=== PATIENT | female | born 1975 | race Caucasian/White ===

== ENCOUNTER 2022-07-12 08:52 | Day surgery (SDC) | payer BC, SELFPAY ==
[2022-07-12] VITALS (14 sets, daily range): BP systolic 84–100; BP diastolic 49–68; PULSE 70–98; RESP 12–16; TEMP 36.1–37.1; O2SAT 96–100; BMI 22.4
[2022-07-12] MEDS: OXYMETAZOLINE 0.05% NASAL SPRAY 2 SPRAY NOSTRIL-B (09:40)
[2022-07-12] MEDS: SODIUM CHLORIDE 0.9 % (FLUSH) 10 ML SYRINGE IVF (09:40)
[2022-07-12] MEDS: LACTATED RINGERS 1000 ML 1,000 ML 100 ML IV (09:40)
[2022-07-12 09:41] LABS: Ur HCG Qualitative* Negative (Negative)
[2022-07-12] MEDS: BUPIVACAINE 0.5%/EPINEPHRINE 0.9 MG (30.9 ML) INJECTION (10:50)
--- NOTE | 2022-07-12 11:12 | W.ANESCHARGE ---
Anesthesia Charges Start Date/Time Anesthesia Start Date: 07/12/22 Anesthesia Start Time: 10:30 Stop Date/Time Anesthesia Stop Date: 07/12/22 Anesthesia Stop Time: 11:09 Summary Emergency: No
--- NOTE | 2022-07-12 11:15 | W.ANESCHARGE ---
Anesthesia Charges Start Date/Time Anesthesia Start Date: 07/12/22 Anesthesia Start Time: 10:30 Stop Date/Time Anesthesia Stop Date: 07/12/22 Anesthesia Stop Time: 11:09 Summary Emergency: No
--- NOTE | 2022-07-12 11:33 | SUR.PHASEI ---
PT.VSS, TRANSFER PT. TO SDS VIA CART.
--- NOTE | 2022-07-12 11:37 | W.PM.ENTPROC ---
Procedure Note Date of procedure: 07/12/22 Procedure: Preoperative diagnosis nasal headache left greater than right, nasal obstruction, inferior turbinate hypertrophy. Postoperative diagnosis same Procedure is submucous partial resection inferior turbinates and left middle turbinate. Under general endotracheal anesthesia patient was prepped and draped in usual fashion and the nose injected and decongested. A stab incision was made in the anterior left inferior turbinate a tunnel created with a Rohit dissector. The sourav bone was outfractured and a conservative anterior submucous resection performed. The Coblation Wand was used to cauterize intramurally and for hemostasis. This cautery was performed intramurally along the inferior 10% and a very conservative fashion. This was repeated on the right side in identical fashion The left middle turbinate was incised along its lateral aspect in the Consul bone infractured and then crushed with the Morgan forceps. I just simply crushed the right middle turbinate. I did Merocel pack coated in Bactroban was placed beneath the middle turbinate on each side. The patient opted well was taken recovery in satisfactory condition. There were no complications. Blood loss less than 5 mL Surgeon: Jonnathan Seo MD
[2022-07-12] MEDS: HYDROmorphone 0.5 mg/0.5 ml inj IVP (12:30)
--- NOTE | 2022-07-12 13:12 | SUR.PHASEII ---
PATIENT HAD STINGING FEELING IN IV AFTER DILAUDID GIVEN. ANESTHESIA NOTIFIED. NO OTHER SYMPTOMS NOTED AFTER. REDNESS OF VEINS DISAPPEARED BY 20 MINUTES.
== END 2022-07-12 13:10 | disposition home or self-care (01) ==
PROVIDERS: PCP Family Medicine; Visit Provider Otolaryngology
PROC: (CPT 30520; principal; 2022-07-12 10:15)
DX: J34.3 Hypertrophy of nasal turbinates (principal); R51.9 Headache, unspecified; J34.89 Other specified disorders of nose and nasal sinuses
CPT/HCPCS: 30140; 30999; 00160; 81025; J0330; J1100; J1170; J2250; J2405; J2704; J7120

== ENCOUNTER 2022-11-11 13:39 | Outpatient (CLI) | payer BC, SELFPAY | END 2022-11-11 13:40 | disposition home or self-care (01) | LOC: NFLDUCREF 11-13 11:23 | PROVIDERS: PCP Family Medicine; Visit Provider Nurse Practitioner Family | DX: R35.89 Other polyuria (principal); N39.0 Urinary tract infection, site not specified | CPT/HCPCS: 87086 ==

== ENCOUNTER 2023-02-14 08:33 | Outpatient (CLI) | payer BC, SELFPAY | END 2023-02-14 08:34 | disposition home or self-care (01) | PROVIDERS: PCP Family Medicine; Visit Provider Family Medicine | DX: Z00.00 Encounter for general adult medical examination without abnormal findings (principal); E55.9 Vitamin D deficiency, unspecified; N92.0 Excessive and frequent menstruation with regular cycle; E07.9 Disorder of thyroid, unspecified; Z13.6 Encounter for screening for cardiovascular disorders | CPT/HCPCS: 80048; 80061; 82306; 82728; 83001; 83002; 84443 ==

== ENCOUNTER 2023-02-21 15:04 | Outpatient (CLI) | payer BC, SELFPAY ==
--- NOTE | 2023-02-21 15:20 | CRLHL7_ITS ---
For Patients: As a result of the Century Cures Act, medical imaging exams and procedure reports are released immediately into your electronic medical record. You may view this report before your referring provider. If you have questions, please contact your health care provider. BILATERAL SCREENING MAMMOGRAM WITH COMPUTER-AIDED DETECTION AND TOMOSYNTHESIS TECHNIQUE: CC and MLO views were obtained. These mammographic images have been obtained using full-field digital technique. These mammographic images were interpreted with the benefit of computer-aided detection. Breast Tomosynthesis was used in this interpretation. COMPARISON FILM: 02/06/22, 01/15/21, 01/13/20. FINDINGS: The breasts are heterogeneously dense, which may obscure small masses IMPRESSION: There is no radiographic evidence for malignancy. ASSESSMENT: BI-RADS Category 2: Benign RECOMMENDATION: Routine screening mammogram in 1 year. A lay language report of this examination will be provided to the patient. Ted Manriquez M.D. Diagnostic Radiologist [email or web address] JOSE LUIS/Dictated by: Ted Manriquez MD @ 02/28/2023 8:14:00 AM (Electronically Signed)
== END 2023-02-21 15:05 | disposition home or self-care (01) ==
LOC: MAMMO 15:05
PROVIDERS: PCP Family Medicine; Visit Provider Family Medicine
DX: Z12.31 Encounter for screening mammogram for malignant neoplasm of breast (principal); R92.2 Inconclusive mammogram
CPT/HCPCS: 77063; 77067

== ENCOUNTER 2023-07-31 08:48 | Outpatient (CLI) | payer BC, SELFPAY ==
--- NOTE | 2023-07-31 | CRLHL7_ITS ---
For Patients: As a result of the Century Cures Act, medical imaging exams and procedure reports are released immediately into your electronic medical record. You may view this report before your referring provider. If you have questions, please contact your health care provider. DIAGNOSTIC LEFT BREAST MAMMOGRAM WITH COMPUTER-AIDED DETECTION AND TOMOSYNTHESIS LEFT BREAST ULTRASOUND CLINICAL HISTORY: LEFT breast lump. COMPARISON: 02/21/2023. TECHNIQUE: Digital LEFT mammogram in 2 projections. Computer-aided detection and tomosynthesis were used. Real-time ultrasound imaging of LEFT breast with imaging documentation. BREAST COMPOSITION: The breasts are heterogeneously dense, which may obscure small masses FINDINGS: 3D CC/MLO LEFT breast mammogram images submitted. Lobular densities within the upper-outer quadrant of the LEFT breast again noted. No architectural distortion, adenopathy or suspicious calcifications. Targeted LEFT breast ultrasound performed. At 3 o`clock 8 cm from the nipple there is a simple anechoic cyst measuring 3.2 x 2.9 x 3.0 cm. Other smaller adjacent cysts are present. No solid masses. IMPRESSION: Benign fibrocystic changes in the upper outer quadrant LEFT breast measuring up to 3.2 cm. No evidence of malignancy. RECOMMENDATIONS: Clinical follow-up. Routine screening mammography. BI-RADS Category 2: Benign Results and recommendations discussed with the patient. A lay language report of this examination will be provided to the patient. Dictated by Ted Manriquez MD @ 07/31/2023 11:02:10 AM/rey JOSE LUIS/Dictated by: Ted Manriquez MD @ 07/31/2023 11:02:00 AM (Electronically Signed)
--- NOTE | 2023-07-31 09:15 | CRLHL7_ITS ---
For Patients: As a result of the Century Cures Act, medical imaging exams and procedure reports are released immediately into your electronic medical record. You may view this report before your referring provider. If you have questions, please contact your health care provider. PLEASE SEE LEFT DIAGNOSTIC MAMMOGRAM OF SAME DAY. CRL:rey JOSE LUIS/Dictated by: Ted Manriquez MD @ 07/31/2023 11:38:00 AM (Electronically Signed)
--- NOTE | 2023-07-31 10:30 | CRLHL7_ITS ---
For Patients: As a result of the Century Cures Act, medical imaging exams and procedure reports are released immediately into your electronic medical record. You may view this report before your referring provider. If you have questions, please contact your health care provider. CLINICAL HISTORY: menometrorrhagia, pelvic pain TECHNIQUE: 2D paredes scale ultrasound. In addition color Doppler and spectral Doppler analysis was performed of the pelvis using a transabdominal and approach. FINDINGS: The myometrium has a heterogeneous echotexture. The uterus measures 8.3 x 4.4 x 5.2 cm. The endometrial lining measures 11 mm in thickness. The right ovary is absent and the left ovary measures 4.2 x 2.4 x 3.0 cm. The left ovary demonstrates normal arterial and venous blood flow on color Doppler and spectral Doppler analysis. Complex hypoechoic left ovarian cyst is noted measuring 2.5 x 2.2 x 2.4 cm. There are no suspicious fluid collections within the cul-de-sac. IMPRESSION: Collapsing hemorrhagic left ovarian cyst measuring 2.5 cm. No excess pelvic free fluid. No torsion. Status post right oophorectomy. Heterogeneous myometrium without leiomyoma. Endometrial thickness 11 millimeters. Dictated by Ted Manriquez MD @ 07/31/2023 10:44:28 AM (Electronically Signed)
== END 2023-07-31 08:49 | disposition home or self-care (01) ==
LOC: US 08:49
PROVIDERS: PCP Family Medicine; Visit Provider Family Medicine
DX: N63.20 Unspecified lump in the left breast, unspecified quadrant (principal); N92.0 Excessive and frequent menstruation with regular cycle; N83.202 Unspecified ovarian cyst, left side; D25.9 Leiomyoma of uterus, unspecified; R93.89 Abnormal findings on diagnostic imaging of other specified body structures; R10.2 Pelvic and perineal pain
CPT/HCPCS: 76642; 76830; 77065; 93976; G0279

== ENCOUNTER 2023-08-04 10:47 | Outpatient (CLI) | payer BC, SELFPAY ==
--- NOTE | 2023-08-04 11:15 | CRLHL7_ITS ---
For Patients: As a result of the Century Cures Act, medical imaging exams and procedure reports are released immediately into your electronic medical record. You may view this report before your referring provider. If you have questions, please contact your health care provider. ULTRASOUND-GUIDED CYST ASPIRATION CLINICAL HISTORY: Painful cysts COMPARISON STUDIES: 07/31/2023 TECHNIQUE: Real-time ultrasound with image documentation was used for targeting the breast lesion. Cyst aspiration performed with 18 gauge needle. CONSENT and TIME OUT: The procedure, risks, and alternatives were explained to the patient and a consent was signed. [place] Protocol was followed including pre-procedure verification that relevant information/documentation was available, reviewed and properly matched to the patient; consent accurate and complete; and equipment and supplies available. Time Out was conducted just prior to starting procedure to verify the four required elements: patient identity, correct side/site marked (if applicable), procedure, relevant images/results properly labeled and displayed (if applicable). PROCEDURE: The patient was positioned supine on the ultrasound table. The breast was prepped with ChloraPrep. 8 cc of 1 percent lidocaine used for local anesthesia. Multiple cysts were aspirated within the upper outer quadrant left breast 8 cm from the nipple. 30 cc of cystic fluid obtained and discarded. IMPRESSION: Ultrasound-guided cyst aspirations. ACR not applicable Dictated by Ted Manriquez MD @ 08/04/2023 12:38:27 PM (Electronically Signed)
== END 2023-08-04 10:48 | disposition home or self-care (01) ==
LOC: US 10:48
PROVIDERS: PCP Family Medicine; Visit Provider Family Medicine
DX: N60.02 Solitary cyst of left breast (principal)
CPT/HCPCS: 19000; 76942

== ENCOUNTER 2023-08-15 12:11 | Outpatient (CLI) | payer BC, SELFPAY | END 2023-08-15 12:12 | disposition home or self-care (01) | LOC: NFLDREF 12:13 | PROVIDERS: PCP Family Medicine; Visit Provider Obstetrics & Gynecology | DX: N92.0 Excessive and frequent menstruation with regular cycle (principal) | CPT/HCPCS: 84443 ==

== ENCOUNTER 2023-08-26 12:20 | Outpatient (CLI) | payer BC, SELFPAY | END 2023-08-26 12:21 | disposition home or self-care (01) | LOC: FBOREF 12:21 | PROVIDERS: PCP Family Medicine; Visit Provider Family Medicine | DX: Z01.818 Encounter for other preprocedural examination (principal) | CPT/HCPCS: 80048 ==

== ENCOUNTER 2023-09-04 15:00 | Inpatient (IN) | payer BC, SELFPAY ==
[2023-09-03] VITALS (39 sets, daily range): BP systolic 79–107; BP diastolic 45–87; PULSE 58–807; RESP 14–18; TEMP 36.4–37.9; O2SAT 92–100; BMI 23.9
[2023-09-03] MEDS: LACTATED RINGERS 1000 ML 1,000 ML 100 ML IV ×3 (08:25→13:34)
--- NOTE | 2023-09-03 08:58 | W.PM.H&PU ---
History & Physical Update History & Physical Update H&P Reviewed and patient assessed: No changes noted H&P Updates: Preoperative diagnosis: Menorrhagia and dysmenorrhea Pertinent medical history: History bilateral salpingectomy and right oophorectomy History of diverticulosis Numerous allergies Planned procedures: Total vaginal hysterectomy, cystoscopy Physical exam: General: No acute distress Psych: Alert and oriented x3, full affect HEENT: Normocephalic, atraumatic Heart: Regular rate and rhythm, no murmur rub or gallop Lungs: Clear to auscultation bilaterally Labs: pending at this time Gentamicin and metronidazole for preoperative prophylaxis Dilaudid for postoperative pain
[2023-09-03 09:09] LABS: Ur HCG Qualitative* Negative (Negative)
[2023-09-03 09:15] LABS: Hemoglobin* 13.7 gm/dL (12.0-16.0)
[2023-09-03] MEDS: MIDAZOLAM HCL 1 MG/ML inj 2 MG IVP (09:27)
[2023-09-03] MEDS: ACETAMINOPHEN 500 MG TABLET 1000 MG PO (09:30)
[2023-09-03 09:43] LABS: Creatinine* 0.8 mg/dL (0.5-1.5); Est. Creatinine Clearance* 83.63; Estimated Glomerular Filt Rate 91 ml/min
[2023-09-03] MEDS: metroNIDAZOLE 500 MG/100 ML PIGGYBACK IVPB (11:03)
[2023-09-03] MEDS: GENTAMICIN 330 MG in 0.9 % SODIUM CHLORIDE 100 ml 100 ML 108.25 MG IVPB (11:20)
[2023-09-03] MEDS: 0.9 % SODIUM CHLORIDE 50 ml INJECTION (11:32)
[2023-09-03] MEDS: VASOPRESSIN 20 UNIT/ML INJ INJECTION (11:34)
--- NOTE | 2023-09-03 12:23 | W.ANESCHARGE ---
Anesthesia Charges Start Date/Time Anesthesia Start Date: 09/03/23 Anesthesia Start Time: 10:46 Stop Date/Time Anesthesia Stop Date: 09/03/23 Anesthesia Stop Time: 12:18
--- NOTE | 2023-09-03 12:28 | W.PM.GYNPROC ---
Procedure Note Pre-op diagnosis: Menorrhagia Post-op diagnosis: same Procedure: Total vaginal hysterectomy, cystoscopy Anesthesia: MAC and spinal Complications: None Surgeon: Lilian Denise MD Apparel Sales Associate: Annette Schneider Estimated blood loss (mL): 25 IV fluids (mL): 1,300 Pathology: specimen obtained, sent to pathology (Uterus and cervix) Condition: stable Disposition: floor Findings: 1. Upon pelvic exam under anesthesia, the cervix and vagina were normal in appearance. Uterus was mobile and anteverted, of normal size and texture. There were no palpable adnexal masses. 2. Uterus was normal in appearance, with weight 89 g. Visualized portions of the left ovary were normal in appearance. Bilateral tubes and right ovary were surgically absent. 3. Upon cystoscopy, performed after completion of hysterectomy, the bladder mucosa was normal in appearance without any visualized injury. There were bilateral ureteral jets noted. Procedure Description: Procedure in detail: Patient was taken to the operating room with IV running. Spinal anesthesia was administered. She received gentamicin and metronidazole in preoperative prophylaxis. She was positioned in dorsal lithotomy position with her legs in candy-cane stirrups. Exam under anesthesia was performed for the above noted findings. Rand catheter was inserted. Weighted speculum was inserted. Cervix was grasped along its anterior and posterior lips with thyroid double toothed tenacula. The cervical vaginal junction was circumferentially infiltrated with dilute vasopressin. The cervical vaginal junction was then incised circumferentially with scalpel. The vaginal epithelium was dissected bluntly off bilateral uterosacral ligaments. Anterior colpotomy was performed sharply, and a [place] retractor was placed between the bladder and the uterus. The posterior colpotomy was performed sharply, and a long weighted speculum was placed in the cul-de-sac. Bilateral uterosacral ligaments were clamped, cut, suture ligated with 0 Vicryl, and tagged for later identification. The cardinal ligaments were serially clamped, cut, and suture ligated bilaterally with 0 Vicryl. Finally, the remnants of the broad ligament were cauterized and transected LigaSure exact device, ultimately freeing the uterus from its attachments to the pelvis. The uterus was delivered through the vagina. The visualized portions of the left ovary were normal in appearance. The angles of the vaginal cuff were closed with a stitch of 0 Vicryl, incorporating the distal most aspect of the uterosacral pedicle into the closure. The intervening vaginal cuff was closed with a series of [id number] sutures of 0 Vicryl. Electrocautery was used at 1 site along the vaginal cuff. Hemostasis was noted. All instruments were removed from the vagina. Rand catheter was removed from the patient's bladder. Patient was administered IV methylene blue to aid in visualization of ureteral jets. Cystoscopy was performed, revealing bilateral ureteral jets and no injury to the bladder. The cystoscope was removed and the Rand catheter replaced. Postoperative debrief was verbalized with OR staff, including a verification of pathology specimens to be sent as described above. Patient tolerated procedure well and was taken to recovery area in stable condition.
[2023-09-03] MEDS: METOCLOPRAMIDE HCL 5 MG/ML INJ 10 MG IVP (12:38)
[2023-09-03] MEDS: HYDROmorphone 0.5 mg/0.5 ml inj IVP (12:39)
[2023-09-03] MEDS: HYDROmorphone 2 MG TABLET PO ×3 (15:20→22:59)
[2023-09-03] MEDS: ONDANSETRON ODT 4 MG TAB PO ×2 (15:24→23:11)
[2023-09-03] MEDS: METOCLOPRAMIDE 10 MG TABLET PO (17:10)
[2023-09-03] MEDS: ACETAMINOPHEN 325 MG TABLET 650 MG PO (18:50)
[2023-09-04] VITALS (20 sets, daily range): BP systolic 85–99; BP diastolic 51–65; PULSE 68–80; RESP 14–16; TEMP 36.4–36.9; O2SAT 98–100
[2023-09-04] MEDS: MELATONIN 3 MG TABLET PO (00:25)
[2023-09-04] MEDS: ACETAMINOPHEN 325 MG TABLET 650 MG PO ×5 (00:44→22:34)
[2023-09-04] MEDS: HYDROmorphone 2 MG TABLET PO ×4 (04:57→19:33)
[2023-09-04 05:29] LABS: Hemoglobin* 11.7 gm/dL (12.0-16.0)
[2023-09-04 05:49] LABS: Creatinine* 0.7 mg/dL (0.5-1.5); Est. Creatinine Clearance* 95.58; Estimated Glomerular Filt Rate 107 ml/min
[2023-09-04] MEDS: SIMETHICONE 80 MG TAB.CHEW 160 MG PO (06:30)
[2023-09-04] MEDS: diphenhydrAMINE 25 MG CAPSULE PO ×2 (11:37→20:41)
--- NOTE | 2023-09-04 13:11 | NUTR.NU ---
RDN with MD consult for diet. RDN visited with patient and whom is concerned regarding gluten-free diet and cross contamination in kitchen. Patient reported she had chicken breast yesterday and she did not feel good after eating it. She is hesitant to order more food during admit due to not wanting to eat food that is contamined. RDN spoke to Culinary Services staff and director whom reported keeping in stock gluten-free meals that are pre-made at a gluten-free facility. They also offer gluten free soups, bread (separate toaster for gluten-free food), and desserts, etc. RDN relayed this information to patient. Patient was grateful in information regarding food options. Patient and had no further questions. RDN to follow up as needed.
--- NOTE | 2023-09-04 15:50 | P.GYNPN_ITS ---
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 This is complicated by her multiple allergies. I consulted nutrition to visit her regarding her concerns over gluten cross contamination in the kitchen. She had a for full visit with the staff and now feels comfortable to eat food here. I think this will help when taking oral narcotics. However, she still reports suboptimal pain control, and does not feel capable of getting out of bed on her own at home. Thus, I will change her status to inpatient for indication of inadequate pain control. I am hopeful that she will be ready for discharge in the morning. Per her request, we will begin Colace for management of constipation. She may take 2-4 mg of Dilaudid every 6 hours. I increased her dose from 2-4 this morning. I would like her to continue taking Tylenol. Postoperative Procedures: Procedures Operation Date: 09/03/23 10:10 Actual Procedure Side Surgeon p Total Vaginal Hysterectomy, Cystoscopy Not Applicable Lilian Denise MD Postoperative day: 1 Time Spent With Patient Time: Total time spent is greater than 50% in coordination of care (as documented) at patient's floor/unit and/or counseling patient: Time with patient: 25 - 35 minutes CLOTHING PATTERN PREPARER- PN:Subj Post-Op Subjective Date Seen: 09/04/23 Post Operative Details: Post-operative day number 1: status post total vaginal hysterectomy and cystoscopy Tessa has struggled with pain control overnight. Due to her allergies, she cannot use NSAIDs. She is using Tylenol and p.o. Dilaudid pain. She has felt the pain was too severe to allow her to easily get out of bed. She is able to walk. She passed her voiding trial this morning. Initially, when I visit her this morning, she had eaten only crackers due in large part to concerns over cross contamination with gluten in the hospital kitchen. She is feeling nauseated. She denies any heavy bleeding. CLOTHING PATTERN PREPARER-PN: Obj Exam Physical Exam: Vital signs: Temp Pulse Resp BP Pulse Ox O2 Del Method 98.3 F 77 16 99/65 100 Room Air 09/04/23 15:37 09/04/23 15:37 09/04/23 15:37 09/04/23 15:37 09/04/23 15:37 09/04/23 15:37 Narrative: General: Pleasant, no acute distress Heart: Regular rate and rhythm, no murmur or gallop Lungs: Clear to auscultation bilaterally Abdomen: Soft, normoactive bowel sounds in all 4 quadrants, no tenderness, rebound, or guarding Urinary Catheter Management: Urethral: Cath placed during this visit: yes, but has since been removed by the nurse Reason for continuing: surgical procedure Removal date: 09/04/23 Removal time: 06:20 CLOTHING PATTERN PREPARER - PN: Obj Data Labs Labs: Laboratory Results - last 24 hr 09/04/23 05:15 Hgb 11.7 L Creatinine 0.7 Estimated Creat Clear 95.58 Estimated GFR 107
[2023-09-05] MEDS: ACETAMINOPHEN 325 MG TABLET 650 MG PO ×2 (02:32→06:27)
--- NOTE | 2023-09-05 02:42 | PC.NURSE ---
Melatonin was offered to pt at 2100. pt declined medication and RN encouraged pt to call out if she wanted medication. Pt has been able to rest over night and is feeling much better.
[2023-09-05 06:19] VITALS: PULSE 78; RESP 16
[2023-09-05 06:24] VITALS: BP 97/55; PULSE 78; RESP 16; TEMP 36.6; O2SAT 95
[2023-09-05 06:47] LABS: Basophils Absolute Auto 0.03 K/uL (0.00-0.30); Basophils Percent Auto 0.4 % (0.0-3.0); Eosinophils Absolute Auto 0.11 K/uL (0.00-0.50); Eosinophils Percent Auto 1.6 % (0.0-7.0); Hematocrit 36.9 % (33.0-51.0); Hemoglobin* 12.1 gm/dL (12.0-16.0); Immature Granulocytes Abs Auto 0.01 K/uL (0.00-0.30); Immature Granulocytes Pct Auto 0.1 %; Lymphocytes Absolute Auto 1.79 K/uL (0.90-2.90); Lymphocytes Percent Auto 25.5 % (20-44); Mean Corpuscular HGB Conc 33 gm/dL (32-36); Mean Corpuscular Hemoglobin 32 pg (26-34); Mean Corpuscular Volume 96 fL (80-100); Monocytes Percent Auto 8.5 % (0.0-11.0); Neutrophils Absolute Auto 4.48 K/uL (1.7-7.0); Neutrophils Percent Auto 63.9 % (42.0-72.0); Platelet Count* 177 K/uL (140-440); RDW Coefficient of Variation % 13.1 % (11.5-15.5); Red Blood Count 3.83 m/uL (4.00-5.20); White Blood Count* 7.02 K/uL (4.50-11.00)
[2023-09-05 06:51] LABS: Slide Review Reflex No
[2023-09-05] MEDS: DOCUSATE SODIUM 100 MG CAPSULE PO (08:41)
[2023-09-05] MEDS: ONDANSETRON ODT 4 MG TAB PO (08:41)
[2023-09-05] MEDS: diphenhydrAMINE 25 MG CAPSULE PO (09:10)
[2023-09-05] MEDS: HYDROmorphone 2 MG TABLET PO (11:27)
--- NOTE | 2023-09-05 12:28 | PM.GYNDS1 ---
DS: Providers Provider Time Seen by Provider: 12:29 Date Seen: 09/05/23 Date of admission: 09/04/23 15:00 Primary care physician: Ted Doe MD Admitting Clinician: Lilian Denise MD Consults: 09/04/23 10:29 Consult to Nutrition [CONS] Routine Comment: Reason for consult:: Miscellaneous Comment: Gluten Attending Physician on discharge: Lilian Denise MD DS: Diagnosis Discharge Diagnosis (1) S/P vaginal hysterectomy: Status: Acute (2) Allergic rhinitis: Status: Acute (3) Vitamin D deficiency, unspecified: Status: Acute (4) Dyshidrotic eczema: Status: Acute (5) Ocular rosacea: Status: Acute (6) Irritable bowel syndrome: Status: Acute (7) Fibromyalgia: Status: Acute (8) Diverticular disease: Status: Acute (9) Gluten intolerance: Status: Acute (10) Lactose intolerance: Status: Acute (11) Moderate persistent asthma, uncomplicated: Status: Acute (12) Chronic constipation: Status: Acute 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 Total vaginal hysterectomy, cystoscopy Indication for surgery: Menorrhagia. Intraoperative findings: 1. Upon pelvic exam under anesthesia, the cervix and vagina were normal in appearance. Uterus was mobile and anteverted, of normal size and texture. There were no palpable adnexal masses. 2. Uterus was normal in appearance, with weight 89 g. Visualized portions of the left ovary were normal in appearance. Bilateral tubes and right ovary were surgically absent. 3. Upon cystoscopy, performed after completion of hysterectomy, the bladder mucosa was normal in appearance without any visualized injury. There were bilateral ureteral jets noted. She had an uncomplicated surgery. Postoperative course has been overall uneventful. Patient stated an extra day for pain control. Vitals have been stable. She has remained afebrile. Today, on postoperative day 2, she reports the pain is well controlled. She has been able to ambulate Without difficulty. She is tolerating regular diet. She is passing flatus. Rand catheter has been removed, and she is voiding without difficulty. Time Spent with Patient Time attestation: Total time spent providing and/or coordinating discharge services: Time spent: Less than 30 minutes LOAN PROCESSING SUPERVISOR - Exam Physical Exam: Vital signs: Temp Pulse Resp BP Pulse Ox O2 Del Method 98 F 78 16 97/55 L 95 Room Air 09/05/23 06:24 09/05/23 06:24 09/05/23 06:24 09/05/23 06:24 09/05/23 06:24 09/05/23 06:24 Narrative: Physical exam: General: No acute distress Psych: Alert and oriented x3, full affect HEENT: Normocephalic, atraumatic Neck: No cervical adenopathy, no thyromegaly Heart: Regular rate and rhythm, no murmur rub or gallop Lungs: Clear to auscultation bilaterally Abdomen: Normoactive bowel sounds, soft, no tenderness, rebound, or guarding, no masses, no hepatosplenomegaly, no hernias Skin: No lesions or rashes Lower extremities: No edema or erythema Pelvic exam: Very scant bleeding on pad LOAN PROCESSING SUPERVISOR - DS: Data Data Completed and Pending Labs on day of discharge: Labs from last 24 hours 09/05/23 06:31 WBC 7.02 RBC 3.83 L Hgb 12.1 Hct 36.9 MCV 96 MCH 32 MCHC 33 RDW Coeff of Silvio 13.1 Plt Count 177 Neut % (Auto) 63.9 Lymph % (Auto) 25.5 [place] % (Auto) 8.5 Eos % (Auto) 1.6 Baso % (Auto) 0.4 Neut # (Auto) 4.48 Lymph # (Auto) 1.79 [place] # (Auto) 0.60 Eos # (Auto) 0.11 Baso # (Auto) 0.03 Abs Immat Gran (auto) 0.01 Imm/Tot Granulo (auto) 0.1 Procedures Procedures: Procedures Operation Date: 09/03/23 10:10 Actual Procedure Side Surgeon p Total Vaginal Hysterectomy, Cystoscopy Not Applicable Lilian Denise MD Discharge Plan Discharge Disposition: Home, Self-Care Date of Admission: 09/04/23 15:00 Primary Care Provider: Ted Doe Condition: Stable Anticipated Discharge Date/Time: 09/05/23 12:00 Discharge Medications: New acetaminophen 325 mg Tablet 650 mg PO Q4H PRN (Reason: minor pain) Qty: 60 0RF docusate sodium 100 mg Capsule 100 mg PO BID PRN (Reason: Constipation) Qty: 30 0RF melatonin 3 mg Tablet 3 mg PO HS Qty: 30 0RF hydromorphone 2 mg Tablet 2 mg PO Q6H PRN14 Days Qty: 20 0RF simethicone 80 mg Tablet,Chewable 160 mg PO Q4H PRN (Reason: gas) 14 Days Qty: 30 0RF Continued triamcinolone acetonide 55 mcg aerosol,spray 2 spray intranasal QDAY Qty: 16.9 5RF Rx Instructions: administer into each nostril, nosebleeds from Flonase albuterol sulfate 90 mcg/actuation HFA aerosol inhaler 2 puff inhalation Q4H PRN (Reason: wheezing) Qty: 8.5 1RF ondansetron 4 mg tablet,disintegrating 4 mg PO Q8H PRN diphenhydramine HCl [Allergy Medication] 25 mg capsule 25 mg PO DAILY Discharge Orders: Discharge Order (Routine); Ordered 09/05/23 Ordered By: Olga Quinteros Patient Education: Simethicone (By mouth), Hydromorphone (By mouth), Melatonin (By mouth), Vaginal Hysterectomy (DC) Additional Instructions: [facility] at 10:15am Follow Up Appointments: Ted Doe MD [Primary Care Provider] - [facility]
== END 2023-09-05 11:40 | disposition home or self-care (01) | DRG 850 ==
LOC: OR 09-05 02:33 → OB 09-05 02:33
PROVIDERS: Admitting Provider Obstetrics & Gynecology; PCP Family Medicine; Visit Provider Obstetrics & Gynecology
PROC: 0UT97ZZ Resection of Uterus, Via Natural or Artificial Opening (ICD-10-PCS; principal; 2023-09-03 10:00)
DX: G89.18 Other acute postprocedural pain (principal); N92.0 Excessive and frequent menstruation with regular cycle; N94.6 Dysmenorrhea, unspecified; Z90.79 Acquired absence of other genital organ(s); Z90.721 Acquired absence of ovaries, unilateral; J45.40 Moderate persistent asthma, uncomplicated; L30.1 Dyshidrosis [pompholyx]; M79.7 Fibromyalgia; K57.90 Diverticulosis of intestine, part unspecified, without perforation or abscess without bleeding; J30.9 Allergic rhinitis, unspecified; L71.8 Other rosacea; E55.9 Vitamin D deficiency, unspecified; K58.1 Irritable bowel syndrome with constipation; K90.41 Non-celiac gluten sensitivity; E73.9 Lactose intolerance, unspecified
CPT/HCPCS: 36415; 81025; 82565; 85018; 85025; 86850; 86900; 86901; 88307; 944; A9270; J1100; J1170; J1580; J2250; J2274; J2371; J2405; J2704; J2765; J3475; J3490; J7120; S0030

== ENCOUNTER 2023-09-08 07:57 | Outpatient (CLI) | payer BC, SELFPAY ==
--- NOTE | 2023-09-08 08:15 | CRLHL7_ITS ---
For Patients: As a result of the Cures Act, medical imaging exams and procedure reports are released immediately into your electronic medical record. You may view this report before your referring provider. If you have questions, please contact your health care provider. LEFT BREAST ULTRASOUND CLINICAL HISTORY: Previous LEFT breast cyst aspiration 08/04/23, 3 o`clock 8 cm from the nipple. Possible recurrence. COMPARISON: 08/04/2023. TECHNIQUE: Real-time ultrasound imaging of LEFET breast with imaging documentation. FINDINGS: Targeted sonogram LEFT breast 3 o`clock 8 cm from the nipple performed. A tiny residual cyst is present corresponding to the area previously aspirated. This measures 6 millimeters in size. Smaller adjacent cysts are present closer to the nipple. IMPRESSION: Tiny residual amount of fluid within the LEFT breast 3 o`clock 8 cm from the nipple representing a small amount of residual cystic change. No suspicious findings. RECOMMENDATIONS: Routine annual BILATERAL screening mammography. Results and recommendations were discussed with the patient at the time of the exam. BI-RADS Category 2: Benign A lay language report of this examination will be provided to the patient. Dictated by eTd Manriquez MD @ 09/08/2023 9:57:44 AM jj/Dictated by: Ted Manriquez MD @ 09/08/2023 9:57:00 AM (Electronically Signed)
== END 2023-09-08 07:58 | disposition home or self-care (01) ==
LOC: US 07:58
PROVIDERS: PCP Family Medicine; Visit Provider Surgery
DX: N60.02 Solitary cyst of left breast (principal)
CPT/HCPCS: 76642

== ENCOUNTER 2023-09-17 10:48 | Outpatient (CLI) | payer BC, SELFPAY ==
--- NOTE | 2023-09-17 10:45 | CRLHL7_ITS ---
For Patients: As a result of the Century Cures Act, medical imaging exams and procedure reports are released immediately into your electronic medical record. You may view this report before your referring provider. If you have questions, please contact your health care provider. INDICATION: Leg pain and swelling. TECHNIQUE: Ultrasound venous duplex lower left extremity. Compression venous exam was performed using paredes-scale, color Doppler, and spectral Doppler analysis. COMPARISON: None. FINDINGS: Deep veins: Sonographic imaging demonstrates the left common femoral, deep femoral, superficial femoral, popliteal, posterior tibial and the contralateral right common femoral veins to be fully compressible with normal color Doppler blood flow. Superficial veins: Greater saphenous vein is fully compressible. No popliteal cyst. IMPRESSION: Normal left lower extremity venous ultrasound, no sign of deep venous thrombosis. Dictated by Cristhian Gutierrez MD @ 09/17/2023 11:28:11 AM (Electronically Signed)
== END 2023-09-17 10:49 | disposition home or self-care (01) ==
LOC: US 10:49
PROVIDERS: PCP Family Medicine; Visit Provider Obstetrics & Gynecology
DX: M79.606 Pain in leg, unspecified (principal); R22.42 Localized swelling, mass and lump, left lower limb
CPT/HCPCS: 93971

== ENCOUNTER 2024-02-27 08:05 | Outpatient (CLI) | payer BC, SELFPAY | END 2024-02-27 08:06 | disposition home or self-care (01) | LOC: NFLDREF 03-05 07:46 | PROVIDERS: PCP Family Medicine; Referring Provider Family Medicine; Visit Provider Obstetrics & Gynecology | DX: R63.5 Abnormal weight gain (principal); Z13.220 Encounter for screening for lipoid disorders; Z13.29 Encounter for screening for other suspected endocrine disorder; Z13.21 Encounter for screening for nutritional disorder | CPT/HCPCS: 80061; 82306; 84443 ==

== ENCOUNTER 2024-03-23 18:05 | Outpatient (CLI) | payer BC, SELFPAY ==
--- NOTE | 2024-03-23 18:20 | MM_ITS ---
Patient: MELODIE GREENFIELD Facility:?[facility] Patient ID:?[id number] Site Patient ID:?[id number]. Site :?[id number] Study:?XRay-Breast Bilateral XRay Breast Bilateral 3D screeni-03/23/2024 7:50:34 PM Ordering Physician:Tony Final Report: BILATERAL SCREENING MAMMOGRAM WITH COMPUTER-AIDED DETECTION AND TOMOSYNTHESIS TECHNIQUE: CC and MLO views were obtained. These mammographic images have been obtained using full-field digital technique. These mammographic images were interpreted with the benefit of computer-aided detection. Breast Tomosynthesis was used in this interpretation. COMPARISON FILM: 07/31/2023, 02/21/2023, 02/06/2022. FINDINGS: There are scattered areas of fibroglandular density IMPRESSION: There is no radiographic evidence for malignancy. ASSESSMENT: BI-RADS Category 2: Benign RECOMMENDATION: Routine screening mammogram in 1 year. A lay language report of this examination will be provided to the patient. Ted Manriquez M.D. Diagnostic Radiologist [email or web address] [email or web address]/rey R& Transcribed: 5:18 p.m. JOSE LUIS/Dictated by: Ted Manriquez MD @ 03/25/2024 7:51:00 PM Signed by:?Ted Manriquez MD @03/25/2024 8:30:08 PM (Electronic Signature)
== END 2024-03-23 18:06 | disposition home or self-care (01) ==
PROVIDERS: PCP Family Medicine; Visit Provider Obstetrics & Gynecology
DX: Z12.31 Encounter for screening mammogram for malignant neoplasm of breast (principal)
CPT/HCPCS: 77063; 77067

== ENCOUNTER 2025-02-21 08:41 | Outpatient (CLI) | payer BC, SELFPAY | END 2025-02-21 08:42 | disposition home or self-care (01) | PROVIDERS: PCP Family Medicine; Visit Provider Obstetrics & Gynecology | DX: E55.9 Vitamin D deficiency, unspecified (principal); R35.0 Frequency of micturition | CPT/HCPCS: 82306; 87086 ==

== ENCOUNTER 2025-03-24 08:55 | Outpatient (CLI) | payer BC, SELFPAY ==
--- NOTE | 2025-03-24 09:15 | CRLHL7_ITS ---
For Patients: As a result of the Century Cures Act, medical imaging exams and procedure reports are released immediately into your electronic medical record. You may view this report before your referring provider. If you have questions, please contact your health care provider. INDICATION: BILATERAL SCREENING MAMMOGRAM, ASYMPTOMATIC 49 Y/O FEMALE COMPARISON: 03/23/24, 02/21/23, 02/06/22` TECHNIQUE: CC and MLO views were obtained. These mammographic images have been obtained using full-field digital technique. These mammographic images were interpreted with the benefit of computer aided detection and tomosynthesis. BREAST COMPOSITION: There are scattered areas of fibroglandular density. FINDINGS: No suspicious findings. ASSESSMENT: BI-RADS 2 Benign RECOMMENDATION: Annual screening mammogram. A lay language report of this examination will be provided to the patient. Dictated by: Ted Manriquez MD @ 03/25/2025 09:06:52 (Electronically Signed)
== END 2025-03-24 08:56 | disposition home or self-care (01) ==
LOC: MAMMO 08:55
PROVIDERS: PCP Family Medicine; Visit Provider Obstetrics & Gynecology
DX: Z12.31 Encounter for screening mammogram for malignant neoplasm of breast (principal)
CPT/HCPCS: 77063; 77067

== ENCOUNTER 2025-10-12 08:25 | Outpatient (CLI) | payer BC, SELFPAY | END 2025-10-12 08:26 | disposition home or self-care (01) | PROVIDERS: PCP Family Medicine; Visit Provider Family Medicine | DX: Z86.39 Personal history of other endocrine, nutritional and metabolic disease (principal) | CPT/HCPCS: 82306; 84443 ==

== ENCOUNTER 2025-10-27 08:38 | Outpatient (CLI) | payer BC, SELFPAY ==
--- NOTE | 2025-10-27 09:00 | CRLHL7_ITS ---
For Patients: As a result of the Century Cures Act, medical imaging exams and procedure reports are released immediately into your electronic medical record. You may view this report before your referring provider. If you have questions, please contact your health care provider. INDICATION: Left-sided tonsillar pain COMPARISON: 02/20/2022 TECHNIQUE: A CT volumetric acquisition was performed of the neck during intravenous infusion of ISOVUE 370 79 CC nonionic intravenous contrast. Please note that all CT scans at this facility use dose modulation, iterative reconstruction, and/or weight-based dosing when appropriate to reduce radiation dose to as low as reasonably achievable. FINDINGS: The CT images demonstrate normal aeration of the mastoid air cells and middle ear cavities. The paranasal sinuses are clear. The nasopharynx appears normal. The parotid and submandibular glands are of normal size and have uniform enhancement. The oropharynx appears normal. The valleculae, epiglottis, aryepiglottic folds and piriform sinuses appear normal. There is a normal appearance of the larynx and subglottic trachea. The thyroid gland is of normal size and has uniform density. There is no evidence of lymphadenopathy within the anterior and posterior cervical triangles or within the supraclavicular region. Lung apices clear. Normal osseous structures. Visualized brain parenchyma unremarkable. IMPRESSION: Negative neck CT. Please note that all CT scans at this facility use dose modulation, iterative reconstruction, and/or weight-based dosing when appropriate to reduce radiation dose to as low as reasonably achievable. Dictated by Ted Manriquez MD @ 10/27/2025 9:55:01 AM (Electronically Signed)
== END 2025-10-27 08:39 | disposition home or self-care (01) ==
LOC: CT 08:38
PROVIDERS: PCP Family Medicine; Visit Provider Otolaryngology
DX: J01.90 Acute sinusitis, unspecified (principal); R09.89 Other specified symptoms and signs involving the circulatory and respiratory systems
CPT/HCPCS: 70491; Q9967